=== PATIENT | male | born 1985 | race Caucasian/White ===

== ENCOUNTER 2016-12-18 20:35 | Inpatient (IN) | payer MEDICAID, OTHER ==
[2016-12-18 20:47] VITALS: O2SAT 96
--- NOTE | 2016-12-18 20:54 | ED PDOC ---
Psych Transfer Clearance - Clearance Statement Clearance Statement: Reviewed vital signs, lab results and transfer papers. Patient clinically stable for psychiatric admission.
[2016-12-18] MEDS ORDERED: Alum-Mag Hydrox-Simethicone Susp (30 mL) PO PRN (21:39)
[2016-12-18] MEDS ORDERED: Magnesium Hydroxide Susp 30 ml UD PO PRN (21:39)
[2016-12-18] MEDS ORDERED: DiphenhydrAMINE 50 mg/ml Inj IM PRN (21:39)
--- NOTE | 2016-12-19 07:06 | CP.PCM.CON ---
History of Present Illness - History of Present Illness History of Present Illness: Attending: Dr Walker reason for Consult: Management of medical matters Chief Complaint: Suicidal Ideation HPI: 31 years old male with hx of Anxiety, depression and Paranoid behaviour was transferred from [facility] for Inpatient Psychiatric treatment at the [facility] for Suicide ideation..As per the hx he left [facility] detox unit 2 days prior and continued to use IV Heroin, Crack and cocaine along with daily Alcohol. He had lost his job and home became of the drugs. PMH: Anxiety; Depression;, paranoid; colitis PSH: No Surgical Hx SH: Heavy smoker; Alcohol abuse; Abuse of Heroine, Crack, cocaine fh: No known family hx Allergies: PCN Review of Systems - Constitutional Constitutional: absent: Anorexia, Chills, Fatigue, Fever, Snoring - EENT Eyes: absent: Diplopia, Floaters, Photophobia, Requires Corrective Lenses Nose/Mouth/Throat: absent: Epistaxis, Nasal Congestion, Nasal Discharge, Sinus Pain, Sinus Pressure - Cardiovascular Cardiovascular: absent: Chest Pain, Dyspnea, Edema - Respiratory Respiratory: absent: Cough, Dyspnea - Gastrointestinal Gastrointestinal: absent: Abdominal Pain, Nausea, Vomiting - Genitourinary Genitourinary: absent: Dysuria, Flank Pain, Hematuria, Urinary Frequency - Musculoskeletal Musculoskeletal: absent: Arthralgias, Muscle Cramps, Muscle Weakness, Myalgias - Integumentary Integumentary: absent: Pruritus, Rash, Skin Ulcer, Sores, Striae - Neurological Neurological: absent: Confusion, Dizziness, Numbness, Focal Weakness, Tremor, Weakness - Psychiatric Psychiatric: Anhedonia, Anxiety, Depression, Paranoia. absent: Panic Attacks - Endocrine Endocrine: absent: Palpitations, Polydipsia, Polyphagia, Polyuria - Hematologic/Lymphatic Hematologic: absent: Easy Bleeding, Easy Bruising Past Patient History - Infectious Disease Hx of Infectious Diseases: None - Past Social History Smoking Status: Heavy Smoker > 10 Cigarettes Daily Chewing Tobacco Use: No Cigar Use: No Drugs: Cocaine, Opiates - CARDIAC Hx Cardiac Disorders: No Hx Hypertension: No - PULMONARY Hx Respiratory Disorders: No Hx Tuberculosis: No - NEUROLOGICAL Hx Neurological Disorder: No HX Cerebrovascular Accident: No Hx Seizures: No - HEENT Hx HEENT Problems: No Other/Comment: glasses - RENAL Hx Chronic Kidney Disease: No - ENDOCRINE/METABOLIC Hx Endocrine Disorders: No - HEMATOLOGICAL/ONCOLOGICAL Hx Blood Disorders: No Hx Cancer: No Hx Human Immunodeficiency Virus (HIV): No - INTEGUMENTARY Hx Dermatological Problems: No - MUSCULOSKELETAL/RHEUMATOLOGICAL Hx Musculoskeletal Disorders: No - GASTROINTESTINAL Hx Gastrointestinal Disorders: No - GENITOURINARY/GYNECOLOGICAL Hx Genitourinary Disorders: No Hx Sexually Transmitted Disorders: No - PSYCHIATRIC Hx Anxiety: Yes Hx Depression: Yes Hx Substance Use: Yes (ivda-heroin,crack cocaine,) - SURGICAL HISTORY Hx Surgeries: No - ANESTHESIA Hx Anesthesia: No Meds Allergies/Adverse Reactions: Allergies Allergy/AdvReac Type Severity Reaction Status Date / Time Penicillins Allergy Verified 05/29/16 15:16 - Medications Medications: Current Medications Acetaminophen (Tylenol 325mg Tab) 650 mg PO Q4 PRN PRN Reason: Pain, moderate (4-7) Al Hydrox/Mg Hydrox/Simethicone (Maalox Plus 30 Ml) 30 ml PO Q4 PRN PRN Reason: Dyspepsia Clonidine HCl (Catapres) 0.1 mg PO Q8 OVI Stop: 12/22/16 01:01 Diphenhydramine HCl (Benadryl) 50 mg IM Q6 PRN PRN Reason: Extrapyramidal S/S Unable PO Diphenhydramine HCl (Benadryl) 50 mg PO Q6 PRN PRN Reason: Extrapyramidal Symptoms Diphenhydramine HCl (Benadryl) 50 mg PO HS PRN PRN Reason: Sleep Folic Acid (Folic Acid) 1 mg PO DAILY OVI Haloperidol (Haldol) 5 mg PO Q4 PRN PRN Reason: Agitation Haloperidol Lactate (Haldol) 5 mg IM Q4 PRN PRN Reason: Agitation, Unable to Take PO Lorazepam (Ativan) 2 mg IM Q4 PRN PRN Reason: Anxiety/Agitation,Unable PO Lorazepam (Ativan) 2 mg PO Q4 PRN PRN Reason: Anxiety/Agitation Lorazepam (Ativan) 1 mg PO TID [facility] Magnesium Hydroxide (Milk Of Magnesia) 30 ml PO HS PRN PRN Reason: Constipation Multivitamins/Minerals (Therapeutic-M Tab) 1 tab PO DAILY [facility] Nicotine (Nicoderm Cq) 1 patch TD DAILY [facility] Thiamine HCl (Vitamin B1 Tab) 100 mg PO DAILY [facility] Physical Exam - Constitutional Appears: No Acute Distress - Head Exam Head Exam: ATRAUMATIC, NORMAL INSPECTION, NORMOCEPHALIC - Eye Exam Eye Exam: EOMI, Normal appearance Pupil Exam: NORMAL ACCOMODATION, PERRL - ENT Exam ENT Exam: Mucous Membranes Moist, Normal Exam, Normal External Ear Exam, Normal Oropharynx - Neck Exam Neck exam: Positive for: Full Rom, Normal Inspection. Negative for: Lymphadenopathy, Tenderness - Respiratory Exam Respiratory Exam: Clear to Auscultation Bilateral. absent: Rales, Rhonchi, Wheezes - Cardiovascular Exam Cardiovascular Exam: REGULAR RHYTHM, +S1, +S2. absent: Gallop, RRR - GI/Abdominal Exam GI & Abdominal Exam: Normal Bowel Sounds, Soft. absent: Mass, Organomegaly, Tenderness - Rectal Exam Rectal Exam: Deferred - Extremities Exam Extremities exam: Positive for: calf tenderness, normal inspection. Negative for: pedal edema - Back Exam Back exam: NORMAL INSPECTION. absent: CVA tenderness (L), CVA tenderness (R) - Neurological Exam Neurological exam: Alert, CN II-XII Intact, Oriented x3, Reflexes Normal - Psychiatric Exam Psychiatric exam: Normal Affect, Normal Mood - Skin Skin Exam: Dry, Intact, Normal Color, Warm Results - Vital Signs Recent Vital Signs: Last Vital Signs Temp 97.3 F L 12/18/16 21:51 Pulse 78 12/18/16 21:51 Resp 18 12/18/16 21:51 BP 118/63 12/18/16 21:51 Pulse Ox 96 12/18/16 20:43 - Labs Labs: PND Assessment & Plan - Assessment and Plan (Free Text) Assessment: #. Major Depression Disorder #. Polysubstance Abuse Plan: 1 years old male with hx of Anxiety, depression and Paranoid behaviour was transferred from [facility] for Inpatient Psychiatric treatment at the [facility] for Suicide ideation..As per the hx he left [facility] detox unit 2 days prior and continued to use IV Heroin, Crack and cocaine along with daily Alcohol. #. Major Depression Disorder with Suicidal ideation -psychiatric management #. Polysubstance Abuse - Ativan/ Clonidine #. Alcohol Withdrawal precaution - Thiamiae/ Folic Acid/ Ativan for Agitation #. Nicotine Addiction - nicotine patch - Date & Time Date: 12/19/16 Time: 07:06
[2016-12-19 07:31] LABS: T4 7.19 ug/dl (5.5-11.0)
[2016-12-19 07:44] LABS: THYROID STIMULATING HORMONE 0.81 mIU/ML (0.46-4.68)
[2016-12-19] MEDS: Multivitamin With Minerals Tab PO SCH (10:10)
--- NOTE | 2016-12-19 15:29 | CP.PCM.PCO ---
Physician Communication Note - Physician Communication Note Physician Communication Note: see hand written initial psych assessment done during downtime
--- NOTE | 2016-12-20 09:33 | PCM.PYCHDC ---
Mental Status Examination - Mental Status Examination Orientation: Person, Place, Situation, Time Memory: Intact Mood: Neutral Affect: Broad Speech: Appropriate Attention: WNL Concentration: WNL Association: WNL Fund of Knowledge: WNL Formal Thought Process: No Impairment Description of patient's judgement and insight: fair Psychotic Thoughts and Behaviors: denies a/v hallucinations Suicidal Ideation: No Current Homicidal Ideation?: No Plan: pt denies any suicidal or homicidal thoughts Discharge Summary - Discharge Note Reason for Hospitalization: pt with substance use, psychosis, non adherence with treatment Laboratory Data: Abnormal Lab Results 12/19/16 12/19/16 06:53 06:53 Hemoglobin A1c 5.8 RPR Nonreactive Consultations:: List each consultation separately and include: 1. Reason for request. 2. Findings. 3. Follow-up Consultations: seen by hospitalist Summary of Hospital Course include:: 1. Description of specific treatment plan utilized for patients during their course of treatmen. 2. Summarize the time- course for resolution of acute symptoms and/or regressed behaviors. 3. Describe issues identified and worked on during hospitalization. 4. Describe medication utilized. 5. Describe medical problems identified and treated. 6. Reassessment of suicide risk Summary of Hospital Course: 31 yo male with history of substance abuse and depression. he is currently homeless and recently left a detox unit in [facility]. he presented in the ER as suicidal. once on the unit he restarted his medications and was seen by the hospitalist. he was isolating in his room. on day of discharge he asked to leave the hosptal stating that he would take care of his own follow up. he did stated he wanted to go to the [facility] and was able to receive information about this program. he was denying any suicidal or homicidal thoughts. - Final Diagnosis (DSM 5) Condition upon Discharge: STABLE DSM 5: polysubstance dependence major depression recurrent moderate Disposition: HOME/ ROUTINE Follow-up Treatment Plan: follow up with aftercare as you will arrange you have been given information about the [facility] programs in the area take medications as prescribed do not use alcohol, tobacco or other illicit substances call 911 if any suicidal or homicidal thoughts attend AA/NA meetings daily Prescriptions/Medication Reconciliation: ARIPiprazole [Abilify] 10 tab PO DAILY #15 Folic Acid 1 mg PO DAILY #30 tab Multimineral/Multivitamin [Therapeutic-M Tab] 1 tab PO DAILY #30 tab Sertraline [Zoloft] 100 tab PO DAILY #15 Thiamine [Vitamin B1 Tab] 100 mg PO DAILY #30 tab - Smoking Cessation Smoking Cessation Medication prescribed: No Reason for not providing: declined - Antipsychotic Medications Pt discharged on 2 or more routine antipsychotic medications: No
[2016-12-20] MEDS: Multivitamin With Minerals Tab PO SCH (09:51)
[2016-12-20 09:54] VITALS: BP 118/66; PULSE 70
[2016-12-20 11:43] VITALS: RESP 16; TEMP 97
== END 2016-12-20 12:15 | disposition home or self-care (01) | DRG 744 ==
LOC: H.ER 20:35 → H.PSYCH 20:53
PROVIDERS: ADMIT Psychiatry & Neurology Psychiatry; ATTEND Psychiatry & Neurology Psychiatry
PROC: GZHZZZZ Group Psychotherapy (ICD-10-PCS; principal; 2016-12-18)
DX: F11.20 Opioid dependence, uncomplicated (principal); F33.1 Major depressive disorder, recurrent, moderate; R45.851 Suicidal ideations; F17.200 Nicotine dependence, unspecified, uncomplicated; Z59.0 Homelessness; Z88.0 Allergy status to penicillin; F41.9 Anxiety disorder, unspecified; Z91.19 Patient's noncompliance with other medical treatment and regimen

== ENCOUNTER 2016-12-22 14:22 | Emergency (ER) | payer MEDICAID, OTHER ==
[2016-12-22 14:52] VITALS: BP 115/73; RESP 18; TEMP 98.3
--- NOTE | 2016-12-22 16:42 | ED PDOC ---
HPI: Psych/Substance Abuse Time Seen by Provider: 12/22/16 14:32 Chief Complaint (Nursing): Psychiatric Evaluation Chief Complaint (Provider): Pt reports not feeling well History Per: Patient History/Exam Limitations: no limitations Onset/Duration Of Symptoms: Days Current Symptoms Are (Timing): Still Present Modifying Factor(s): Alcohol (Yesterday ) Additional Complaint(s): [place] [facility] [place] however patient states he did not want to stay. Pt states he wants helps to feel better today. Past Medical History Reviewed: Historical Data, Nursing Documentation, Vital Signs Vital Signs: Last Vital Signs Temp 98.3 F 12/22/16 14:46 Pulse 87 12/22/16 14:46 Resp 18 12/22/16 14:46 BP 115/73 12/22/16 14:46 Pulse Ox 92 L 12/22/16 14:46 - Medical History PMH: Anxiety, Depression Denies: Diabetes, Hepatitis, HIV, HTN, Chronic Kidney Disease, Seizures, Sexually Transmitted Disease - Surgical History Surgical History: No Surg Hx - Family History Family History: States: No Known Family Hx - Living Arrangements Living Arrangements: With Family - Social History Current smoker - smoking cessation education provided: No Alcohol: None Drugs: Denies - Immunization History Hx Tetanus Toxoid Vaccination: No Hx Influenza Vaccination: No Hx Pneumococcal Vaccination: No - Home Medications Home Medications: Ambulatory Orders Medication Instructions Recorded ARIPiprazole [Abilify] 10 tab PO DAILY #15 12/20/16 Folic Acid 1 mg PO DAILY #30 tab 12/20/16 Multimineral/Multivitamin 1 tab PO DAILY #30 tab 12/20/16 [Therapeutic-M Tab] Sertraline [Zoloft] 100 tab PO DAILY #15 12/20/16 Thiamine [Vitamin B1 Tab] 100 mg PO DAILY #30 tab 12/20/16 - Allergies Allergies/Adverse Reactions: Allergies Allergy/AdvReac Type Severity Reaction Status Date / Time Penicillins Allergy Verified 05/29/16 15:16 Review of Systems ROS Statement: Except As Marked, All Systems Reviewed And Found Negative Psych: Positive for: Depression Physical Exam - Reviewed Nursing Documentation Reviewed: Yes Vital Signs Reviewed: Yes - Physical Exam Appears: Positive for: Well, Non-toxic, No Acute Distress Head Exam: Positive for: ATRAUMATIC, NORMAL INSPECTION, NORMOCEPHALIC Skin: Positive for: Normal Color, Warm, DRY Eye Exam: Positive for: Normal appearance ENT: Positive for: Normal ENT Inspection Neck: Positive for: Normal, Painless ROM Cardiovascular/Chest: Positive for: Regular Rate, Rhythm Respiratory: Positive for: CNT, Normal Breath Sounds Gastrointestinal/Abdominal: Positive for: Normal Exam, Bowel Sounds, Soft Back: Positive for: Normal Inspection Extremity: Positive for: Normal ROM Neurologic/Psych: Positive for: Alert, Oriented - ECG O2 Sat by Pulse Oximetry: 92 Medical Decision Making Medical Decision Making: Pt evaluated by crisis. Disposition - Clinical Impression Clinical Impression: Substance abuse - Patient ED Disposition Is Patient to be Admitted: No Counseled Patient/Family Regarding: Diagnosis, Need For Followup - Disposition Referrals: [facility] [Outside] [facility] [Outside] Disposition: Routine/Home Disposition Time: 16:50 Condition: GOOD Instructions: Polysubstance Abuse (ED)
[2016-12-22 17:20] VITALS: PULSE 71; O2SAT 97
== END 2016-12-22 17:20 | disposition home or self-care (01) ==
LOC: H.ER 14:22
DX: F19.10 Other psychoactive substance abuse, uncomplicated (principal); Z86.59 Personal history of other mental and behavioral disorders; Z00.8 Encounter for other general examination